=== PATIENT | male | born 1955 | race Caucasian/White ===

== ENCOUNTER 2023-05-26 16:13 | Emergency (ER) | payer MEDICARE ==
[~2023-05-26] VITALS: Ht 157.5 cm; Wt 71.0 kg
[2023-05-26 16:19] VITALS: TEMP 98.3; O2SAT 100
[2023-05-26] MEDS ORDERED: TRANEXAMIC ACID 1,000 MG/10 ML IV ONE (16:45)
[2023-05-26] MEDS ORDERED: FAMOTIDINE 20MG/2ML VIAL IV ONE (16:45)
[2023-05-26] MEDS ORDERED: METHYLPREDNISOLONE SOD SUCC 125MG/2ML (ACT-O-VIAL) IV ONE (16:45)
[2023-05-26] MEDS ORDERED: DIPHENHYDRAMINE 50MG/ML VIAL IV ONE (16:45)
[2023-05-26] MEDS ORDERED: METHYLPREDNISOLONE SOD SUCC 125MG/2ML (ACT-O-VIAL) IV NR (17:00)
[2023-05-26 21:15] VITALS: BP 131/75; PULSE 64; RESP 18
== END 2023-05-26 21:32 | disposition home or self-care (01) ==
LOC: ER 17:34
DX: T78.1XXA Other adverse food reactions, not elsewhere classified, initial encounter (principal); E11.9 Type 2 diabetes mellitus without complications; I10 Essential (primary) hypertension; E78.00 Pure hypercholesterolemia, unspecified; X58.XXXA Exposure to other specified factors, initial encounter
CPT/HCPCS: 99284; 96374; 96375; J1200; J3490; J2930